=== PATIENT | male | born 1970 | race Caucasian/White ===

== ENCOUNTER 2020-01-09 16:55 | Inpatient (IN) | payer OTHER, SELFPAY ==
[~2020-01-09] VITALS: Ht 182.9 cm; Wt 71.7 kg
[2020-01-09 17:10] VITALS: BP_SYST 114
--- NOTE | 2020-01-09 17:15 | NUR ---
Patient to ER bed 6 to gown for evaluation. Side rails up. Report given to Joselo.
--- NOTE | 2020-01-09 17:33 | NUR ---
RECEIVED AND IN ROOM, PITER TO ASSUME CARE. CALM, ALERT, C/O BILATERAL GLUTEAL WOUNDS. FOUL ODOR. SEROUS DRAINAGE
--- NOTE | 2020-01-09 17:41 | NUR ---
WORKERS COMPENSATION ADMINISTRATOR CHA IN TO ASSESS
[2020-01-09] MEDS ORDERED: VANCOMYCIN HCL 1000 MG/VIAL IV ONE (17:59)
[2020-01-09 18:00] LABS: BASOPHILS # (AUTO) 0.3 K/uL (0.0-0.2); BASOPHILS % (AUTO) 2.5 % (0.0-2.0); EOSINOPHILS # (AUTO) 0.1 K/uL (0.0-0.4); EOSINOPHILS % (AUTO) 1.2 % (0.0-4.0); HEMATOCRIT 35.2 % (36-54); HEMOGLOBIN 11.3 g/dL (14.0-18.0); LYMPHOCYTES # (AUTO) 1.1 K/uL (1.0-5.5); LYMPHOCYTES % (AUTO) 10.5 % (20.5-51.5); MEAN CORPUSCULAR HEMOGLOBIN 25 pg (27-31); MEAN CORPUSCULAR HGB CONC 32 % (32-36); MEAN CORPUSCULAR VOLUME 77 fL (79.0-98.0); MONOCYTES # (AUTO) 0.7 K/uL (0.0-1.0); MONOCYTES % (AUTO) 6.8 % (1.7-9.3); NEUTROPHILS # (AUTO) 8.5 K/uL (1.8-7.7); PLATELET COUNT (AUTO) 408 K/uL (130-430); RED BLOOD CELL COUNT(AUTO) 4.58 MIL/uL (4.2-6.2); WHITE BLOOD COUNT (AUTO) 10.7 K/uL (4.8-10.8)
[2020-01-09] MEDS ORDERED: VANCOMYCIN HCL 1,000 MG in NS 250 ML IV ONE (18:00)
[2020-01-09] MEDS ORDERED: KETOROLAC TROMETHAMINE 15 MG VIAL IVP ONE (18:00)
[2020-01-09 18:11] LABS: CALCIUM 8.2 mg/dL (8.4-11.0); CREATININE 0.76 mg/dL (0.55-1.30); POTASSIUM 4.1 mmol/L (3.5-5.1)
[2020-01-09 18:17] LABS: ALBUMIN 2.2 g/dL (3.4-4.8); TOTAL BILIRUBIN 0.4 mg/dL (0.0-1.0)
--- NOTE | 2020-01-09 18:37 | NUR ---
DR CHATMAN AND I ASSESSED BILATERAL GLUTEAL PRESSURE SORES.
[2020-01-09] MEDS ORDERED: NACL 0.9% 1,000 ML IV ONE ×2 (18:45)
[2020-01-09] MEDS ORDERED: PIPERACILLIN/TAZO 4.5 GM in NS 100 ML IV ONE (18:45)
--- NOTE | 2020-01-09 19:15 | NUR ---
VSS no S/S of acute distress Resting on gurney rails up
[2020-01-09] MEDS ORDERED: PIPERACILLIN/TAZOBACTAM 4.5 GM/VIAL (ZOSYN) IV ONE (20:07)
--- NOTE | 2020-01-09 20:20 | NUR ---
Dr. Knox bedside for pt update
[2020-01-09 21:30] VITALS: BP_SYST 97
--- NOTE | 2020-01-09 21:30 | NUR ---
ADMISSION NOTE Received patient from ER via [facility]. Patient admitted with diagnosis of Osteoooomyelitis/Sepsis. Patient oriented to hospital room, call light, toileting, pain management and safety-teach back done. Patient informed that Felicity will be the nurse and that their room number is 107B. Personal belongings checked and Belongings List documented. Call light within reach. Addendum: 01/09/20 at 2131 by Zahida Gutierrez RN Osteomyelitis
--- NOTE | 2020-01-09 21:30 | NUR ---
Patient will be admitted to care of Dr. Bonilla. Admitted to Med Surg unit. Will go to room 107. Belongings list completed. Complete and up to date summary report printed. SBAR report to be given at bedside with opportunity for questions.
[2020-01-09] MEDS ORDERED: ACETAMINOPHEN 500 MG TABLET PO PRN (22:00)
[2020-01-09] MEDS ORDERED: IBUPROFEN 600 MG TABLET PO PRN (22:00)
[2020-01-09] MEDS ORDERED: ONDANSETRON HCL 4 MG/2 ML VIAL IVP PRN (22:00)
[2020-01-09] MEDS ORDERED: POTASSIUM CHLORIDE 10 MEQ in NACL 0.9% 1,000 ML IV SCH (22:00)
[2020-01-09] MEDS ORDERED: PIPERACILLIN/TAZOBACTAM 3.375 GM/VIAL (ZOSYN) IV ONE (22:44)
--- NOTE | 2020-01-09 23:00 | NUR ---
Per House [facility], IVF of NS with 10 Meq KCL is not available. Dr. Monzon to be paged.
--- NOTE | 2020-01-09 23:06 | NUR ---
PAGED I PAGED DR. MORENO I SPOKE WITH SERVANDO GARBER
--- NOTE | 2020-01-09 23:07 | NUR ---
DR. RIOJAS CALLED BACK
--- NOTE | 2020-01-09 23:10 | NUR ---
Spoke with Dr. Monzon and IVF changed to NS with 20 Meq KCL.
[2020-01-09] MEDS ORDERED: KCL 20 mEq in NS 1000 mL 1,000 ML IV ONE (23:17)
[2020-01-09] MEDS: KCL 20 mEq in NS 1000 mL 1,000 ML IV SCH (23:43)
[2020-01-09] MEDS: PIPERACILLIN/TAZO 3.375/DEX-IS 50 ML IV SCH (23:45)
--- NOTE | 2020-01-10 00:30 | NUR ---
Pt is sleeping comfortably in bed. IVF is infusing well in left wrist. Call light is with pt and bed alarm is on.
[2020-01-10 00:42] VITALS: BP_SYST 96
--- NOTE | 2020-01-10 04:48 | NUR ---
CONSULT: CONSULT CALLED FOR DR. MARKS I SPOKE WITH TYRONE GARBER REASON FOR CONSULT: SEPSIS REQUESTING CONSULT: DR. MORENO WOODEN BOAT BUILDER PHONE NUMBER: [phone]
[2020-01-10] MEDS: PIPERACILLIN/TAZO 3.375/DEX-IS 50 ML IV SCH ×4 (06:35→23:56)
[2020-01-10 07:13] LABS: BASOPHILS % (AUTO) 0.6 % (0.0-2.0); EOSINOPHILS # (AUTO) 0.3 K/uL (0.0-0.4); EOSINOPHILS % (AUTO) 5.1 % (0.0-4.0); HEMATOCRIT 31.7 % (36-54); HEMOGLOBIN 10.1 g/dL (14.0-18.0); LYMPHOCYTES # (AUTO) 0.8 K/uL (1.0-5.5); LYMPHOCYTES % (AUTO) 11.3 % (20.5-51.5); MEAN CORPUSCULAR HEMOGLOBIN 25 pg (27-31); MEAN CORPUSCULAR HGB CONC 32 % (32-36); MEAN CORPUSCULAR VOLUME 78 fL (79.0-98.0); MONOCYTES # (AUTO) 0.4 K/uL (0.0-1.0); MONOCYTES % (AUTO) 6.3 % (1.7-9.3); NEUTROPHILS # (AUTO) 5.3 K/uL (1.8-7.7); NEUTROPHILS % (AUTO) 76.7 % (40.0-70.0); PLATELET COUNT (AUTO) 336 K/uL (130-430); RED BLOOD CELL COUNT(AUTO) 4.09 MIL/uL (4.2-6.2); RED CELL DISTRIBUTION WIDTH 15.5 % (9.0-15.0); WHITE BLOOD COUNT (AUTO) 6.9 K/uL (4.8-10.8)
--- NOTE | 2020-01-10 07:36 | NUR ---
RN OPENING NOTE REPORT WAS ENDORSED BY NIGHT NURSE. PATIENT APPEARS TO BE RESTING WITH BOTH EYES CLOSED. PATIENT SHOWS NO SIGNS OF ANY DISTRESS. PATIENT HAS ALL SAFETY PRECAUTIONS IN PLACE. NO OTHER NEEDS AT THIS TIME.
[2020-01-10 07:56] LABS: ALBUMIN 1.7 g/dL (3.4-4.8); CALCIUM 7.9 mg/dL (8.4-11.0); CREATININE 0.74 mg/dL (0.55-1.30); POTASSIUM 4.2 mmol/L (3.5-5.1); THYROID STIMULATING HORMONE 1.23 uIu/mL (0.36-3.74); TOTAL BILIRUBIN 0.3 mg/dL (0.0-1.0)
[2020-01-10 08:20] LABS: TOTAL IRON BIND. CAPACITY 173 ug/dL (250-450)
--- NOTE | 2020-01-10 08:48 | NUR ---
Nutrition Update Jose scale 16 noted. Pt admitted for osteomyelitis/sepsis Diet: Regular Diet BMI: 21.4 kg/m2 RD to follow per nutrition care standards.
[2020-01-10] MEDS: FAMOTIDINE 20 MG TABLET PO SCH (09:32)
[2020-01-10 09:33] VITALS: BP_SYST 95
[2020-01-10] MEDS: KCL 20 mEq in NS 1000 mL 1,000 ML IV SCH ×2 (09:33→19:15)
--- NOTE | 2020-01-10 09:37 | NUR ---
MEDICATION PATIENT SCHEDULED MEDICATION GIVEN PER ORDER. PATIENT IS AWAKE AND ALERT NO SIGNS OF DISTRESS. PATIENT TOLERATED MEDICATION WELL. SPOKE WITH PATIENT ABOUT FAMILY MEMBER CALLING THAT WAS NOT LISTED BARBRA PATIENT STATES HE TALKED TO HER BUT IS OK TO SPEAK WITH HER. PATIENT EDUCATED LITHARGE SUPERVISOR LIGHT FOR ASSISTANCE. CALL LIGHT IS WITH HIM NO OTHER NEEDS AT THIS TIME. NO COMPLAINTS AT THIS TIME
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
--- NOTE | 2020-01-10 11:20 | NUR ---
WOUND CARE DONE WITH WOUND CARE NURSE NADINE. PATIENT TOLERATED WELL. NO OTHER NEEDS AT THIS TIME. ALL SAFETY PRECAUTIONS IN PLACE.
[2020-01-10 12:13] VITALS: BP_SYST 81
--- NOTE | 2020-01-10 12:22 | NUR ---
MEDICATION PATIENTS SCHEDULED MEDICATION DONE PER ORDER. PATIENT IS AWAKE AND TALKING ON PHONE. NO SIGNS OF ANY DISTRESS, BREATHING IS EQUAL AND NON LABORED. PATIENT HAS ALL SAFETY PRECAUTIONS IN PLACE. CALL LIGHT IS WITH HIM EDUCATED TO USE FOR ASSISTANCE. NO OTHER NEEDS AT THIS TIME.
--- NOTE | 2020-01-10 14:00 | NUR ---
rn rounding patient appears to be resting with both eyes closed no signs of any distress, breathing is equal and on labored. patient has all safety precautions in place. no other needs at this time. will continue to monitor.
[2020-01-10 14:27] LABS: BILIRUBIN,URINE NEGATIVE (NEGATIVE); BLOOD, URINE NEGATIVE (NEGATIVE); CLARITY/URINE CLEAR (CLEAR); COLOR,URINE YELLOW (YELLOW); GLUCOSE,URINE NEGATIVE (NEGATIVE); KETONES,URINE NEGATIVE (NEGATIVE); LEUKOCYTE ESTERASE ,URINE NEGATIVE (NEGATIVE); NITRITE, URINE NEGATIVE (NEGATIVE); PH,URINE 7.5 (5.0-8.0); PROTEIN URINE NEGATIVE (NEGATIVE)
[2020-01-10 16:18] VITALS: BP_SYST 114
--- NOTE | 2020-01-10 16:43 | NUR ---
rn rounding patients family came to hospital dropped off food, coffee and water. gave to patient and informed that after he is done with the bowl it has to be thrown away nothing can go home. patient verbalized understanding. patient has no other needs at this time. patient shows no signs of any distress, breathing is equal and non labored. patient has no complaints at this time. no other needs.
--- NOTE | 2020-01-10 19:40 | NUR ---
Opening note Received report and assumed care of patient resting in bed. Easy to arouse by verbal stimuli. Calm and cooperative. VSS. Denies pain or discomfort at this time. Able to reposition by self. In room air; no signs of respiratory compromise noted. IV left wrist patent and no signs of infiltration noted. will continue to monitor patient as per unit protocol.
--- NOTE | 2020-01-10 19:53 | NUR ---
rn closing note report was endorsed to night nurse. patient appears to be resting with both eyes closed no signs of any distress,breathing is equal and non labored. patient has all safety precautions in place. call light is with him no other needs at this time.
[2020-01-10 20:00] VITALS: BP_SYST 94
--- NOTE | 2020-01-10 20:40 | NUR ---
Assessment completed. Patient care provided at this time by CRUISE COORDINATOR as patient was moist due to self catheterization. will continue to monitor.
[2020-01-10] MEDS: DOXYCYCLINE HYCLATE 100 MG in D5W 100 ML IV SCH (21:05)
--- NOTE | 2020-01-10 22:49 | NUR ---
Resting comfortably on left side. IVF infusing to left wrist; patent. will continue to monitor.
[2020-01-11] VITALS: BP_SYST 97
[2020-01-11] MEDS: KCL 20 mEq in NS 1000 mL 1,000 ML IV SCH ×2 (04:03→14:41)
--- NOTE | 2020-01-11 05:30 | NUR ---
Bilateral buttocks wound care completed. Wounds were cleaned with NS, packed with iodoform and covered with foam dressing. Patient tolerated well.
[2020-01-11] MEDS: PIPERACILLIN/TAZO 3.375/DEX-IS 50 ML IV SCH ×3 (05:53→17:23)
[2020-01-11 07:46] VITALS: BP_SYST 90
[2020-01-11] MEDS: DOXYCYCLINE HYCLATE 100 MG in D5W 100 ML IV SCH ×2 (08:21→20:47)
[2020-01-11] MEDS: FAMOTIDINE 20 MG TABLET PO SCH (08:21)
--- NOTE | 2020-01-11 09:28 | NUR ---
CONSULTATION PAGED/CALLED Reason for Consultation: [] DEBRIDEMENT OF GLUTEAL ULCERS Person Who was Notified: [] DR DIEGO Zelaya Consulting Physician: [] Nathalie NATHAN ADOPTION WORKER FOR DR RANDOLPH Duff Metal Template Maker Specialty: [] GEN SURGEON Ordering Physician: []
--- NOTE | 2020-01-11 10:30 | NUR ---
PT SLEEPING, NO S/S OF PAIN, NO SOB.
--- NOTE | 2020-01-11 11:37 | NUR ---
Dietitian Recommendations * Recommend regular diet w/ Cheko BID (wound healing modular provides 180 kcal/day, 5 gm protein/day) KIMBERLEE DE LA ROSA Please refer to Nutrition Assessment for details. Addendum: 01/11/20 at [address] Amended: Links added.
--- NOTE | 2020-01-11 12:28 | NUR ---
WOUND CARE DONE, PT TOLERATED WELL. PT ALSOW ASSISTED WITH URINE INCONTINENCE. BEDDINGS CHANGED. ENCOURAGED PT TO CALL NURSES SOON HE HAVE INCONTINENCE. Addendum: 01/11/20 at 1229 by Barrera Mcdaniels RN ALSO SINA
--- NOTE | 2020-01-11 12:29 | NUR ---
ALSO ENCOURAGED PATIENT TO TURN HIMSELF LEFT AND RIGHT EVERY N2 HOURS OR MORE OFTEN.
[2020-01-11 12:49] VITALS: BP_SYST 94
--- NOTE | 2020-01-11 13:32 | NUR ---
PT GIVEN TYLENOL FOR BUTTOCKS PAIN 3/10. WILL CONT TO MONITOR PT.
[2020-01-11 16:42] VITALS: BP_SYST 87
--- NOTE | 2020-01-11 18:17 | NUR ---
CLOSING NOTES, PT HAS BEEN STABLE, PT'S BP IS ALWAYS LOW, PT'S HEART RATE WNL. PT DENIES NAUSEA, WOUND DRESSING CHANGED. PT GIVEN TYLENOL FOR PAIN. WILL ENDORSE TO NIGHT NURSE.
[2020-01-11 20:30] VITALS: BP_SYST 85
--- NOTE | 2020-01-11 20:30 | NUR ---
Opening notes Pt AAOx4, no s/s distress noted, afebrile. IV saline locked L. wrist clear and patent. Pt encouraged to reposition in bed. Updated pt on plan of care awaiting surgeon consult. Pt verbalized understanding. Call light/items within reach. Bed low, locked, siderails up x 3. To monitor.
--- NOTE | 2020-01-11 21:00 | NUR ---
Wound care Dressing on basia buttocks dislodged. Changed dressing, cleansed w/ NS, patted dry, applied iodoform packing and covered w/ optifoam dressing. Pt tolerated well. To monitor.
--- NOTE | 2020-01-11 21:32 | NUR ---
IV site Pt c/o IV site painful. IVF stopped at this time. Pt refused to have IV restart at this time. Pt states "I just want to rest, can we do it tomorrow." Educated pt that he has antibiotics tonight. Pt verbalized understanding of risks/benefits. CRN made aware.
[2020-01-12 00:52] VITALS: BP_SYST 89
--- NOTE | 2020-01-12 02:20 | NUR ---
Rounds Pt asleep, no s/s distress. Call light within reach. Bed maintained low, locked, siderails up x3. To monitor.
--- NOTE | 2020-01-12 04:25 | NUR ---
Rounds Pt asleep, respirations even and unlabored. Call light within reach. Bed low, locked, siderails up x2. Safety maintained. To monitor.
[2020-01-12] MEDS: KCL 20 mEq in NS 1000 mL 1,000 ML IV SCH (05:47)
--- NOTE | 2020-01-12 06:05 | NUR ---
Closing notes Pt alert, awake, no s/s distress noted. IV site checked and still flushes well with NS, pt denies pain at IV site. IVF and IV antibiotic continued at ordered rate. IV secured with armboard. Pt incontinent of urine, linens and bottom dressing changed. Pt also used straight cath and noted 400ml clear, yellow urine. Pt repositioned. Call light within reach. Bed low, locked, siderails up x3. To endorse to AM nurse.
[2020-01-12] MEDS: PIPERACILLIN/TAZO 3.375/DEX-IS 50 ML IV SCH ×2 (06:19)
[2020-01-12 07:10] LABS: BASOPHILS % (AUTO) 0.6 % (0.0-2.0); EOSINOPHILS # (AUTO) 0.4 K/uL (0.0-0.4); EOSINOPHILS % (AUTO) 5.9 % (0.0-4.0); HEMOGLOBIN 11.7 g/dL (14.0-18.0); LYMPHOCYTES # (AUTO) 1.2 K/uL (1.0-5.5); LYMPHOCYTES % (AUTO) 17.8 % (20.5-51.5); MEAN CORPUSCULAR HEMOGLOBIN 25 pg (27-31); MEAN CORPUSCULAR HGB CONC 32 % (32-36); MEAN CORPUSCULAR VOLUME 78 fL (79.0-98.0); MONOCYTES # (AUTO) 0.3 K/uL (0.0-1.0); MONOCYTES % (AUTO) 5.1 % (1.7-9.3); NEUTROPHILS # (AUTO) 4.6 K/uL (1.8-7.7); NEUTROPHILS % (AUTO) 70.6 % (40.0-70.0); PLATELET COUNT (AUTO) 335 K/uL (130-430); RED BLOOD CELL COUNT(AUTO) 4.72 MIL/uL (4.2-6.2); RED CELL DISTRIBUTION WIDTH 15.8 % (9.0-15.0); WHITE BLOOD COUNT (AUTO) 6.6 K/uL (4.8-10.8)
[2020-01-12 07:43] VITALS: BP_SYST 91
[2020-01-12] MEDS: FAMOTIDINE 20 MG TABLET PO SCH (08:35)
[2020-01-12] MEDS: DOXYCYCLINE HYCLATE 100 MG in D5W 100 ML IV SCH ×2 (08:35→08:44)
--- NOTE | 2020-01-12 08:47 | NUR ---
paged dr juan for order for picc and pain meds, pt stated that tylenol does no help. refused tylenol and motrin.
[2020-01-12] MEDS ORDERED: NALOXONE HCL 0.4 MG/ML AMP (NARCAN) IVP PRN (09:00)
[2020-01-12] MEDS ORDERED: HYDROcodone/ACETAMIN 5-325 MG TAB (NORCO/ VICODIN) PO PRN (09:00)
--- NOTE | 2020-01-12 09:16 | NUR ---
PATIENT LEFT AMA, PT SIGNED AMA FORM. PT TOOK ALL HIS BELONGINGS AND WHEELCHAIR AND THE VAPE PARAPHERNALIA. Addendum: 01/12/20 at 922 by Barrera Mcdaniels RN PT ENCOURAGED TO STAY BUT PATIENT SAID HE DOES NOT WANT TO FREAK UP HERE, HE FEELS SUFFOCATED HERE AND WANTS TO BREATH OUTSIDE. ASKED PT WHAT CAN WE DO TO MAKE HIM STAY, PT SAID NOTHING AT THIS TIME. THIS RN TOLD PT THAT HE SHOULD CONTINUE TO TAKE TAKE OF HIS WOUNDS HE NEEDS ABX AND POSSIBLE SURGERY TO MAKE THEM HELL. PT SAID HE WILL GO SOMEPLACE ELSE . Addendum: 01/12/20 at 931 by Barrera Mcdaniels RN SECURITY MADE AWARE , LEFT MESSAGE .
--- NOTE | 2020-01-12 09:38 | NUR ---
GEN SURGEON DR Nathalie CORTEZ WAS CALLED, RE: TO INFORM PT WENT AMA. LEFT A VOICE MESSAGE. ATTENDING MD DR MORENO WAS CALLED, RE: TO INFORM THAT PT WENT AMA. SPOKE TO DIANA.
[2020-01-12] MEDS ORDERED: CEFEPIME 1 GM in D5W 50 ML IV SCH (21:00)
--- NOTE | 2020-01-15 10:34 | NUR ---
SS NOTES: TRIMMER AND REINFORCER faxed referral to [facility]. [facility] will contact patient directly.
== END 2020-01-12 09:15 | disposition left against medical advice (07) | DRG 383 ==
LOC: SED 16:55 → SMU 20:36
PROVIDERS: ADMIT Internal Medicine; ATTEND Internal Medicine
DX: L03.317 Cellulitis of buttock (principal); E43 Unspecified severe protein-calorie malnutrition; G82.20 Paraplegia, unspecified; L89.326 Pressure-induced deep tissue damage of left buttock; N31.9 Neuromuscular dysfunction of bladder, unspecified; L89.316 Pressure-induced deep tissue damage of right buttock; L89.309 Pressure ulcer of unspecified buttock, unspecified stage; D64.9 Anemia, unspecified; Z20.828 Contact with and (suspected) exposure to other viral communicable diseases; Z59.0 Homelessness; Z99.3 Dependence on wheelchair; Z68.21 Body mass index [BMI] 21.0-21.9, adult; Z88.8 Allergy status to other drugs, medicaments and biological substances; Z56.0 Unemployment, unspecified
CPT/HCPCS: 36415; 71045; 76376; 80053; 81003; 82746; 83540-TC; 83550-TC; 83605; 84443-TC; 85025; 87040-TC; 87081; 93005; 96365; 96366; 96368; 96375; 99285; J0692; J1885; J2543; J3370; J3480; J3490; J7030; J7060; Q9967